=== PATIENT | male | born 1975 | race African-American/Black ===

== ENCOUNTER 2020-07-11 10:50 | Emergency (ER) | payer MEDICARE ==
[~2020-07-11] VITALS: Ht 177.8 cm; Wt 108.9 kg
[2020-07-11] MEDS ORDERED: OXYMETAZOLINE HCL 0.05% NAS 1 SPRAY BTL ONE (11:07)
[2020-07-11] MEDS ORDERED: OXYMETAZOLINE HCL 0.05% NAS 1 SPRAY BTL SCH ×2 (21:00)
== END 2020-07-11 11:24 | disposition home or self-care (01) ==
LOC: EDSEX 10:50 → ER 10:57
DX: R04.0 Epistaxis (principal)
CPT/HCPCS: 99283